=== PATIENT | male | born 1990 | race Caucasian/White ===

== ENCOUNTER 2023-12-31 21:37 | Emergency (ER) | payer MEDICAID ==
[~2023-12-31] VITALS: Ht 177.8 cm; Wt 69.0 kg
[2023-12-31 22:04] VITALS: BP 115/70; PULSE 68; RESP 18; TEMP 98.8; O2SAT 98
[2023-12-31 23:23] LABS: BASOPHILS % 0.4 % (0.0-2.0); EOSINOPHILS % 4.7 % (0.0-5.0); HEMOGLOBIN. 12.7 g/dL (14.0-18.0); MEAN CORPUSCULAR HEMOGLOBIN 30.3 pg (28.0-32.0); MEAN CORPUSCULAR HGB CONC 33.5 g/dL (31.0-37.0); MEAN CORPUSCULAR VOLUME 90.4 fL (80.0-94.0); MEAN PLATELET VOLUME 8.4 fl (7.4-10.4); MONOCYTES % 7.7 % (2.0-8.0); NEUTROPHILS % 60.2 % (40.0-76.0); PLATELET 227 x1000/uL (130-400); RED CELL DISTRIBUTION WIDTH 13.6 % (11.6-14.6)
[2023-12-31 23:31] LABS: CARBON DIOXIDE 30 mEq/L (21-32); CHLORIDE 106 mEq/L (98-107); POTASSIUM 3.8 mEq/L (3.5-5.1); SODIUM 142 mEq/L (136-145)
[2023-12-31 23:32] LABS: CALCIUM 9.9 mg/dL (8.7-10.4)
[2023-12-31 23:36] LABS: CREATININE 0.8 mg/dL (0.6-1.3)
[2023-12-31 23:37] LABS: GLUCOSE 104 mg/dL (70-105); UREA NITROGEN BLOOD 16 mg/dL (9-23)
[2023-12-31 23:38] LABS: ALANINE AMINOTRANSFERASE 18 IU/L (10-49); ALBUMIN 4.3 g/dL (3.2-4.8); ASPARTATE AMINOTRANSFERASE 22 IU/L (<34)
[2023-12-31 23:39] LABS: BILIRUBIN TOTAL 0.3 mg/dL (0.1-1.0); PROTEIN TOTAL 6.9 g/dL (6.0-8.3)
[2023-12-31 23:46] LABS: BILIRUBIN DIRECT < 0.1 mg/dL (<=3.0)
[2024-01-01] MEDS ORDERED: IBUP-2030 MT (08:17)
== END 2024-01-01 02:55 | disposition home or self-care (01) ==
LOC: ER 21:37
DX: R68.89 Other general symptoms and signs (principal); Z00.00 Encounter for general adult medical examination without abnormal findings
CPT/HCPCS: 36415; 80053; 80076; 85025; 99283

== ENCOUNTER 2024-01-01 03:28 | Emergency (ER) | payer MEDICAID ==
[~2024-01-01] VITALS: Ht 180.3 cm; Wt 101.1 kg
[2024-01-01 03:45] VITALS: TEMP 98.2; O2SAT 97
[2024-01-01] MEDS: IBUPROFEN 800MG TABLET PO ONE (08:15)
[2024-01-01] MEDS ORDERED: DEXAMETHASONE 4MG TABLET PO ONE (08:15)
[2024-01-01] MEDS ORDERED: IBUP-2030 MT (08:17)
[2024-01-01] MEDS: DEXAMETHASONE 2MG TABLET PO ONE (09:00)
[2024-01-01 11:34] VITALS: BP 148/85; PULSE 85; RESP 17; O2SAT 97
== END 2024-01-01 11:35 | disposition home or self-care (01) ==
LOC: ER 03:28
DX: M79.671 Pain in right foot (principal); M79.672 Pain in left foot
CPT/HCPCS: 99283; J8540